=== PATIENT | female | born 1995 | race Caucasian/White ===

== ENCOUNTER 2016-09-13 20:16 | Emergency (ER) | payer SELFPAY ==
[2016-09-13 20:26] VITALS: BP 116/81
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
== END 2016-09-13 21:58 | disposition left against medical advice (07) ==
LOC: UCEAST 20:16
DX: M54.2 Cervicalgia (principal); Z88.0 Allergy status to penicillin; Z88.5 Allergy status to narcotic agent; Z88.8 Allergy status to other drugs, medicaments and biological substances
CPT/HCPCS: 99213; G0463

== ENCOUNTER 2017-01-04 13:42 | Emergency (ER) | payer SELFPAY ==
[2017-01-04 15:29] VITALS: BP 115/63
--- NOTE | 2017-01-04 16:10 | UC ---
Back Pain HPI - HPI Summary HPI Summary: The patient comes in today for: 1. Left back/flank pain: Onset: Yesterday. Palliative/provocative: Laying down helps. Movement makes it worse. Touching the area makes it worse. Quality: Sharp. Region: Left lower back and "goes down the side." Severity: 10/10 though she appears much less--4/10 Time: Constant. Associated symptoms: Fevers: None. Injury: None When the pain occurs, she states sometimes she feels like her lungs are tightening. She states that it can be hard to talk. Renal problems (stones, infections): NOne. * - History of Current Complaint Chief Complaint: UCBackPain Stated Complaint: LEFT SIDE PAIN Time Seen by Provider: 01/04/17 15:57 Hx Obtained From: Patient Hx Last Menstrual Period: DELIVERY BY 07/16/2016 - Allergies/Home Medications Allergies/Adverse Reactions: Allergies Allergy/AdvReac Type Severity Reaction Status Date / Time Oxycodone Allergy Severe Itching Verified 01/04/17 15:22 Penicillins [PCN] Allergy Severe Hives Verified 01/04/17 15:22 ANESTHESIA Allergy Severe Itching Uncoded 01/04/17 15:22 PMH/Surg Hx/FS Hx/Imm Hx Previously Healthy: No Endocrine History Of: Denies: Diabetes, Thyroid Disease, Hyperthyroidism, Hypothyroidism, Dyslipidemia Cardiovascular History Of: Denies: Cardiac Disorders, Hypertension, Pacemaker/ICD, Myocardial Infarction , Congestive Heart Failure, Atrial Fibrillation, Deep Vein Thrombosis, Bleeding Disorders Respiratory History Of: Reports: Asthma Denies: COPD, Bronchitis, Pneumonia, Pulmonary Embolism GI/ History Of: Denies: Gastroesophageal Reflux, Ulcer, Gastrointestinal Bleed, Gall Bladder Disease, Kidney Stones, Diverticulitis, Renal Disease, Urosepsis Neurological History Of: Denies: TIA, CVA, Dementia, Seizures, Migraine Psychological History Of: Denies: Anxiety, Depression, Bipolar Disorder, Schizophrenia, Post Traumatic Stress Disorder Cancer History Of: Denies: Lung Cancer, Colorectal Cancer, Breast Cancer, Prostate Cancer, Cervical Cancer Other History Of: Negative For: HIV, Hepatitis B, Hepatitis C, Anticoagulant Therapy - Surgical History Surgical History: Yes Surgery Procedure, Year, and Place: TONSILLECTOMY, 07/16/16 - Family History Known Family History: Positive: Diabetes Negative: Hypertension - Social History Occupation: Employed Full-time Alcohol Use: None Substance Use Type: None Smoking Status (MU): Never Smoked Tobacco Household Exposure Type: Cigarettes - Immunization History Most Recent Influenza Vaccination: Has not yet received this Season Most Recent Tetanus Shot: 05/27/16 Most Recent Pneumonia Vaccination: Has not received Review of Systems Constitutional: Negative Skin: Negative Eyes: Negative ENT: Negative Respiratory: Negative Cardiovascular: Negative Gastrointestinal: Negative Genitourinary: Negative Neurological: Negative All Other Systems Reviewed And Are Negative: Yes Physical Exam Triage Information Reviewed: Yes Appearance: Well-Appearing, No Pain Distress - She moves without guarding. She will grimace when she sits up from a supine position. There is no crying due to pain, and she has no change in her speech due to pain., Well-Nourished Vital Signs: Initial Vital Signs Temp 97.9 F 01/04/17 15:24 Pulse 74 01/04/17 15:24 Resp 16 01/04/17 15:24 BP 115/63 01/04/17 15:24 Pulse Ox 100 01/04/17 15:24 Vital Signs Reviewed: Yes Eyes: Positive: Conjunctiva Clear. Negative: Discharge ENT: Positive: Normal ENT inspection. Negative: Pharyngeal erythema, Nasal congestion, Nasal drainage, TM bulging, TM dull, TM red, Tonsillar swelling, Tonsillar exudate Dental: Negative: Gross Decay/Caries @, Dental Fracture @ Neck: Positive: Supple, Nontender, No Lymphadenopathy Respiratory: Positive: Lungs clear, No respiratory distress, No accessory muscle use. Negative: Rhonchi, Wheezing Cardiovascular: Positive: RRR, No Murmur Abdomen Description: Positive: Nontender, No Organomegaly, Soft. Negative: Distended, Guarding Musculoskeletal: Positive: Strength Intact, ROM Intact - She has no guarding or slowing of her movement sitting up or getting off the exam table., No Edema, Other: - She has tenderness that is worse with palpation of the left lumbar paraspinous musculature. There is significantly less pain with palpation of the left CVA. She does not jump with this palpation as she did more so with palpation of the left paraspinal musculature in the lumbar region. There is minimal discomfort with palpation of the lower left lateral ribs. Diagnostics - Laboratory Diagnostic Studies Completed/Ordered: Urine screen: Specific gravity: 1.020. WBC: 1+. Nitrite: (-). Blood: (-). Protein: (-). Glucose: (-) Back Pain Course/Dx - Course Course Of Treatment: Patient was told that she had characteristics for left renal stone as well as lower left back muscular strain. She was told that to rule in or out a renal stone, she would need a CT scan and at this time her only option would be the ER. which she did not want to do. However, she did want pain medication. She was offered naproxen and she was OK with that as long as she used it short term. She did not want to go with ibuprofen even though she is breast feeding. She does not have a primary care provider. - Differential Dx/Diagnosis Provider Diagnoses: lower back/flank pain (left) Discharge - Discharge Plan Condition: Stable Disposition: HOME Patient Education Materials: Low Back Strain (ED), Kidney Stones (ED), Renal Colic (ED) Referrals: No Primary Care Phys,NOPCP [Primary Care Provider] - (Please see your primary care provider in about a week to see how well you are doing. If you don't have a primary care provider, please contact the physician referral service. If you can't get in timely, please you may come back to see us until you can. If you get worse, please be seen sooner by us or the ER.) [facility]IAN REFERRAL [Outside]
== END 2017-01-04 16:36 | disposition home or self-care (01) ==
LOC: UCEAST 13:42
DX: M54.5 Low back pain (principal); J45.909 Unspecified asthma, uncomplicated; Z88.4 Allergy status to anesthetic agent; Z88.5 Allergy status to narcotic agent; Z88.0 Allergy status to penicillin; Z77.22 Contact with and (suspected) exposure to environmental tobacco smoke (acute) (chronic)
CPT/HCPCS: 81003; 87086; 99211; G0463

== ENCOUNTER 2017-05-23 11:41 | Emergency (ER) | payer MEDICAID ==
[2017-05-23 12:12] VITALS: BP 100/62
--- NOTE | 2017-05-23 13:01 | UC ---
[facility] HPI - History of Current Complaint Chief Complaint: UCDentalProblem Stated Complaint: TOOTHACHE Time Seen by Provider: 05/23/17 12:48 Hx Obtained From: Patient Hx Last Menstrual Period: 05/12/17 ?: No Onset/Duration: Sudden Onset - had L lower 3rd molar pulled on Thursday and exp pain next day, returned to [facility], started on clindamycin and anaprox, pt states pain is now so bad she cannot sleep Severity: Severe Aggravating: Other - continuos pain Alleviating: Nothing - Allergies/Home Medications Allergies/Adverse Reactions: Allergies Allergy/AdvReac Type Severity Reaction Status Date / Time Oxycodone Allergy Severe Itching Verified 05/23/17 12:12 Penicillins [PCN] Allergy Severe Hives Verified 05/23/17 12:12 ANESTHESIA Allergy Severe Itching Uncoded 05/23/17 12:12 Home Medications: Home Medications Clindamycin HCl [Clindamycin 150 MG CAP*] 300 mg PO Q6H 05/23/17 [History Confirmed 05/23/17] PMH/Surg Hx/FS Hx/Imm Hx Previously Healthy: Yes Respiratory History: Asthma Other History Of: Negative For: HIV, Hepatitis B, Hepatitis C, Anticoagulant Therapy - Surgical History Surgical History: Yes Surgery Procedure, Year, and Place: TONSILLECTOMY, 07/16/16 - Family History Known Family History: Positive: Diabetes Negative: Hypertension - Social History Occupation: Unemployed Lives: With Family Alcohol Use: None Substance Use Type: None Smoking Status (MU): Never Smoked Tobacco Household Exposure Type: Cigarettes - Immunization History Most Recent Influenza Vaccination: Has not yet received this Season Most Recent Tetanus Shot: 05/27/16 Most Recent Pneumonia Vaccination: Has not received Review of Systems Constitutional: Negative ENT: Dental Pain Respiratory: Negative Musculoskeletal: Negative Neurological: Negative Psychological: Negative Is Patient Immunocompromised?: Yes All Other Systems Reviewed And Are Negative: Yes Physical Exam Triage Information Reviewed: Yes Appearance: Pain Distress - rubbing L jaw Vital Signs: Initial Vital Signs Temp 97.6 F 05/23/17 12:07 Pulse 76 05/23/17 12:07 Resp 18 05/23/17 12:07 BP 100/62 05/23/17 12:07 Pulse Ox 99 05/23/17 12:07 Vital Signs Reviewed: Yes Dental Exam: Other - L lower 3rd molar absent with absorbable sutures in place, no redness or drainage noted on gum, minor Facial swelling and mod tenderness L lower jaw Neck: Positive: No Lymphadenopathy Respiratory Exam: Normal Cardiovascular Exam: Normal Psychological Exam: Normal Skin Exam: Normal Dental Complaint Course/Dx - Course Course Of Treatment: iStop Reference #: [id number] - Differential Dx/Diagnosis Differential Diagnosis/Dx: Dental Abscess, Dental Caries, Fractured Tooth, Odontogenic Pain Provider Diagnoses: Dental pain Discharge - Discharge Plan Condition: Good Disposition: HOME
== END 2017-05-23 13:25 | disposition home or self-care (01) ==
LOC: UCEAST 11:41
DX: K08.89 Other specified disorders of teeth and supporting structures (principal); J45.909 Unspecified asthma, uncomplicated; Z88.4 Allergy status to anesthetic agent; Z88.5 Allergy status to narcotic agent; Z88.0 Allergy status to penicillin; Z77.22 Contact with and (suspected) exposure to environmental tobacco smoke (acute) (chronic)
CPT/HCPCS: 99212; G0463